=== PATIENT | male | born 1975 | race Caucasian/White ===

== ENCOUNTER 2022-05-31 13:56 | Emergency (ER) | payer MEDICAID, OTHER ==
[~2022-05-31] VITALS: Ht 175.3 cm; Wt 119.7 kg
[2022-05-31 14:04] VITALS: BP 155/78
[2022-05-31] MEDS ORDERED: ONDANSETRON 4 MG/2 ML VIAL IVP ONE (14:20)
--- NOTE | 2022-05-31 14:24 | NUR ---
DR LOCO AT BEDSIDE EVALUATING PT
--- NOTE | 2022-05-31 14:50 | NUR ---
46YO MALE PT C/O SUDDEN ONSET OF DIZZINESS XTHIS MORNING. PT STATES DIZZINESS ALONG WITH NAUSEA, DENIES NAUSEA AT THIS TIME. PT STATES TAKING BP AT HOME AT 156/90 WHICH IS ABNORMAL FOR HIM. PT REPORTS"BURNING" IN R ARM UPON TOUCH. DENIES LOSS OF SENSATION OR NUMBING. NO VISIBLE INJURY TO ARM. DENIES V/D OR CHEST PAIN. PT AAOX4, NO VISIBLE DISTRESS. RESPIRATIONS EVEN AND UNLABORED. SPEAKING IN FULL SENTENCES. AMBULATORY WITH STEADY GAIT. PT PUT ON MONITOR , BED AT LOWEST POSITION, BED RAIL UP X2. NKA HX: DENIES
--- NOTE | 2022-05-31 14:55 | NUR ---
PT SWABBED FOR COVID (CRISTIN). HANDED TO SENIOR PAINTER STAR
[2022-05-31 15:00] LABS: BASOPHILS # (AUTO) 0.1 K/uL (0.00-0.22); EOSINOPHILS # (AUTO) 0.1 K/uL (0-0.4); EOSINOPHILS % (AUTO) 1.6 % (0.0-4.0); HEMATOCRIT 41.6 % (36-52); HEMOGLOBIN 13.9 g/dL (12.0-18.0); LYMPHOCYTES # (AUTO) 2.1 K/uL (2.0-11.5); LYMPHOCYTES % (AUTO) 23.6 % (20.5-51.1); MEAN CORPUSCULAR HEMOGLOBIN 29 pg (27-31); MEAN CORPUSCULAR HGB CONC 34 g/dL (33-37); MEAN CORPUSCULAR VOLUME 86.7 fL (80-94); MONOCYTES # (AUTO) 0.6 K/uL (0.8-1.0); MONOCYTES % (AUTO) 7.1 % (1.7-9.3); NEUTROPHILS # (AUTO) 6.1 K/uL (1.8-7.7); NEUTROPHILS % (AUTO) 66.7 % (42.2-75.2); PLATELET COUNT (AUTO) 288 K/uL (140-450); RED BLOOD CELL COUNT(AUTO) 4.79 MIL/uL (4.20-6.10); RED CELL DISTRIBUTION WIDTH 13.7 % (11.6-13.7); WHITE BLOOD COUNT (AUTO) 9.1 K/uL (4.8-10.8)
--- NOTE | 2022-05-31 15:00 | NUR ---
PT TAKEN TO CT VIA KATERYNA
--- NOTE | 2022-05-31 15:10 | NUR ---
PT BROUGHT BACK FROM CT VIA KATERYNA
--- NOTE | 2022-05-31 15:13 | NUR ---
WAS ABOUT TO MEDICATE PT WITH ZOFRAN. DENIES NAUSEA AT THIS TIME AND STATED HE WANTED TO HOLD OFF.
[2022-05-31 15:17] LABS: APPEARANCE,URINE CLEAR (CLEAR); BILIRUBIN,URINE NEGATIVE (NEGATIVE); BLOOD, URINE TRACE-I (NEGATIVE); COLOR,URINE YELLOW (YELLOW); LEUKOCYTE ESTERASE ,URINE NEGATIVE (NEGATIVE); NITRITE, URINE NEGATIVE (NEGATIVE); PH,URINE 7.5 (5.0-9.0); UGLUCOSE NEGATIVE (NEGATIVE)
[2022-05-31 15:24] LABS: ASPARTATE AMINOTRANSFERASE 19 U/L (15-37); CARBON DIOXIDE 27.3 mmol/L (21-32); CREATININE 0.9 mg/dL (0.6-1.3); GFR ARICAN-AMERICAN 117 mL/min (>90); GLUCOSE 105 mg/dL (74-106); LIPASE 96 U/L (73-393); MAGNESIUM 2.2 mg/dL (1.8-2.4); PHOSPHORUS 3.6 mg/dL (2.5-4.9); THYROID STIMULATING HORMONE 1.28 uIU/mL (0.34-3.74); TOTAL BILIRUBIN 0.3 mg/dL (0.0-1.0); UREA NITROGEN, BLOOD 12 mg/dL (7-18)
[2022-05-31 15:31] LABS: OTHER CASTS, URINE None Seen /LPF (None Seen); RBC,URINE 0-5 /HPF (0-5); WBC,URINE 0-5 /HPF (0-5)
[2022-05-31 15:42] LABS: POTASSIUM 3.8 mmol/L (3.5-5.1); SODIUM SERUM 141 mmol/L (136-145)
[2022-05-31 15:56] LABS: ANION GAP 14.3 (8-16); CHLORIDE 104 mmol/L (98-107)
[2022-05-31] MEDS ORDERED: ONDA-188 SL (16:35)
--- NOTE | 2022-05-31 16:35 | NUR ---
LAB AT BEDSIDE
[2022-05-31 16:38] VITALS: BP 145/54
--- NOTE | 2022-05-31 16:45 | NUR ---
IV removed, catheter intact and site benign. Applied folded 4x4 gauze and tape to stop bleeding.
--- NOTE | 2022-05-31 16:48 | NUR ---
Patient discharged with v/s stable. Written and verbal after care instructions FOR HYPERTENSION AND VIRAL ILLNESS given and explained. Patient alert, oriented and verbalized understanding of instructions. Ambulatory with steady gait. All questions addressed prior to discharge. ID band removed. Patient advised to follow up with PMD. Rx of ZOFRAN given.Opportunity to ask questions provided and answered.
--- NOTE | 2022-05-31 16:49 | NUR ---
The patient's care was reviewed and supervised by Samantha Clement RN.
== END 2022-05-31 16:48 | disposition home or self-care (01) ==
LOC: MED 13:56
DX: B34.9 Viral infection, unspecified (principal); Z20.822 Contact with and (suspected) exposure to COVID-19; I10 Essential (primary) hypertension
CPT/HCPCS: 36415; 70450; 80053; 81001; 83690; 83735; 84100; 84443; 84484; 85025; 93005; 99285; J2405

== ENCOUNTER 2024-07-09 18:42 | Emergency (ER) | payer MEDICAID, OTHER ==
[~2024-07-09 18:42] MED LIST: ONDA-188 SL
== END 2024-07-09 19:30 | disposition left against medical advice (07) ==
LOC: MED 18:42
DX: R10.9 Unspecified abdominal pain (principal); Z53.21 Procedure and treatment not carried out due to patient leaving prior to being seen by health care provider